=== PATIENT | female | born 1950 | race American Indian/Alaskan Native ===

== ENCOUNTER 2019-02-24 11:15 | Emergency (ER) | payer OTHER, MEDICARE ==
[2019-02-24 12:55] LABS: BUN/Creatinine Ratio 19; Blood Urea Nitrogen 15 mg/dL (7-17); Calcium 9.7 mg/dL (8.4-10.2); Hemolysis Index 2
[2019-02-24 12:57] LABS: Alanine Aminotransferase 24 units/L (7-56); Albumin 4.4 g/dL (3.9-5)
[2019-02-24 12:58] LABS: Bilirubin,Direct < 0.2 mg/dL (0-0.2)
--- NOTE | 2019-02-24 13:03 | Cat Scan Report ---
CT cervical spine wo con INDICATION / CLINICAL INFORMATION: 68 years Female; trauma. TECHNIQUE: Axial CT images of the cervical spine were obtained. Sagittal and coronal reformatted images were pr oduced. All CT scans at this location are performed using CT dose reduction for ALARA by means of aut omated exposure control. COMPARISON: None available. FINDINGS: POST-SURGICAL CHANGES: None. ALIGNMENT: There is slight curvature of the cervical spine, convex toward the left along with slight reversal of the cervical lordosis. However, there is no significant spondylolisthesis. VERTEBRAE: There is no definitive CT evidence of acute fracture involving the cervical spine. There a re multiple small lytic a lesions involving the visualized vertebral bodies including 5 mm foci along the anterior C3, right at C4 and left C7 vertebral bodies. Multiple smaller more subtle foci are see n scattered within the cervical thoracic vertebral bodies. The findings are nonspecific though may be seen with neoplastic process, particularly multiple myeloma and correlation would be needed. INTRAVERTEBRAL DISCS: The right facet and uncovertebral joint hypertrophy at C3-L4 results in marked right neural foraminal narrowing. Milder narrowing is seen on the left. There is moderate disc space narrowing associated endplate changes at C4-5. The spondylosis effaces the ventral subarachnoid space with moderate to marked neural foraminal narrowing bilaterally. There is a left-sided disc bulge at C5-6 which effaces the left ventral subarachnoid space. There is mild right neural foraminal narrowing. There is a central disc protrusion at C6-7 which also effaces the ventral subarachnoid space. There is moderate left neural foraminal narrowing. PARASPINAL SOFT TISSUES: No prevertebral soft tissue fluid collections are identified. ADDITIONAL FINDINGS: None. IMPRESSION: 1. There is no CT evidence of acute fracture involving the cervical spine. 2. There are multilevel degenerative changes as detailed above. 3. There are also multilevel small lucent lesions involving the visualized cervicothoracic spine and correlation would be needed as described, particularly regarding process such as multiple myeloma. Signer Name: Steve Mobley MD Signed: 02/24/2019 12:59 PM Workstation Name: [id number]
[2019-02-24 13:20] LABS: Basophils % (Auto) 0.5 % (0.0-1.8); Eosinophils # (Auto) 0.1 K/mm3 (0.0-0.4); Hematocrit 42.4 % (30.3-42.9); Hemoglobin 14.2 gm/dl (10.1-14.3); Lymphocytes # (Auto) 1.2 K/mm3 (1.2-5.4); Mean Corpuscular HGB Conc 34 % (30-34); Mean Corpuscular Volume 93 fl (79-97); Monocytes # (Auto) 0.4 K/mm3 (0.0-0.8); Monocytes % (Auto) 7.3 % (0.0-7.3); Platelet Count 262 K/mm3 (140-440); Red Blood Count 4.57 M/mm3 (3.65-5.03); Red Cell Distribution Width 13.1 % (13.2-15.2)
[2019-02-24 13:31] LABS: INR 0.95 (0.87-1.13)
[2019-02-24 13:33] LABS: Partial Thromboplastin Time 34.4 Sec. (24.2-36.6)
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
--- NOTE | 2019-02-24 14:46 | Cat Scan Report ---
CT head/brain wo con INDICATION / CLINICAL INFORMATION: 68 years Female; neuro deficits <6hrs or sx present upon awakening. TECHNIQUE: Routine CT head without contrast. All CT scans at this location are performed using CT dos e reduction for ALARA by means of automated exposure control. COMPARISON: None. FINDINGS: BRAIN / INTRACRANIAL CONTENTS: There is mild cerebral white matter disease most consistent with micro vascular angiopathy. There are small foci of calcification projected within the basal ganglia. Howeve r, there is no CT evidence of acute intracranial hemorrhage or significant mass effect. The ventricul ar system is appropriate in size and configuration. There is mild cerebral atrophy. ORBITS: No significant abnormality of visualized orbits. SINUSES / MASTOIDS: No significant abnormality the visualized paranasal sinuses or mastoid air cells. CRANIOCERVICAL JUNCTION: No significant abnormality. ADDITIONAL FINDINGS: None. IMPRESSION: 1. There is mild microvascular angiopathy without CT evidence of acute intracranial hemorrhage. Signer Name: Steve Mobley MD Signed: 02/24/2019 2:42 PM Workstation Name: [id number]
[2019-02-24 15:10] VITALS: BP 151/76
== END 2019-02-24 15:09 | disposition home or self-care (01) ==
LOC: ED 11:15
DX: S16.1XXA Strain of muscle, fascia and tendon at neck level, initial encounter (principal); R51 Headache; V49.49XA Driver injured in collision with other motor vehicles in traffic accident, initial encounter; Y93.89 Activity, other specified; Y92.488 Other paved roadways as the place of occurrence of the external cause; Y99.8 Other external cause status
CPT/HCPCS: 36415; 70450; 72125; 80048; 80076; 83735; 84484; 85025; 85610; 85730